=== PATIENT | female | born 1945 | race Caucasian/White ===

== ENCOUNTER → 2020-07-10 | Outpatient (CLI) | payer MEDICARE | LOC: LAB FS 10:20 | PROVIDERS: ATTEND Orthopaedic Surgery | DX: Z01.812 Encounter for preprocedural laboratory examination (principal); Z20.822 Contact with and (suspected) exposure to COVID-19 | CPT/HCPCS: 87635 ==

== ENCOUNTER 2020-09-14 21:03 | Emergency (ER) | payer MEDICARE ==
[~2020-09-14] VITALS: Ht 160 cm; Wt 77.1 kg
[2020-09-14 21:58] LABS: HEMATOCRIT 34 % (35-52); HEMOGLOBIN 11.3 G/DL (11.5-16.0); MEAN CORPUSCULAR HEMOGLOBIN 31 PG (25-34); MEAN CORPUSCULAR HGB CONC 34 G/DL (32-36); MEAN CORPUSCULAR VOLUME 91 FL (80-99); WHITE BLOOD COUNT 6.3 10^3/uL (4.3-11.0)
[2020-09-14 21:59] LABS: BASOPHILS % (AUTO) 1 % (0-10); EOSINOPHILS % (AUTO) 4 % (0-10); LYMPHOCYTES % (AUTO) 27 % (12-44); MEAN PLATELET VOLUME 10.1 FL (7.4-10.4); MONOCYTES % (AUTO) 9 % (0-12); NEUTROPHILS % (AUTO) 59 % (42-75); PLATELET COUNT 217 10^3/uL (130-400)
[2020-09-14 22:00] LABS: EOSINOPHILS # (AUTO) 0.3 10^3/uL (0.0-0.3); LYMPHOCYTES # (AUTO) 1.7 X 10^3 (1.0-4.0); MONOCYTES # (AUTO) 0.6 X 10^3 (0.0-1.0); NEUTROPHILS # (AUTO) 3.8 X 10^3 (1.8-7.8)
[2020-09-14 22:19] LABS: CHLORIDE 95 MMOL/L (98-107); POTASSIUM 3.6 MMOL/L (3.6-5.0); SODIUM 134 MMOL/L (135-145)
[2020-09-14 22:20] LABS: ALANINE AMINOTRANSFERASE 26 U/L (0-55); ALBUMIN 4.3 GM/DL (3.2-4.5); ALKALINE PHOSPHATASE 95 U/L (40-136); BILIRUBIN,TOTAL 0.3 MG/DL (0.1-1.0); BUN/CREATININE RATIO 23; CALCIUM 9.6 MG/DL (8.5-10.1); CARBON DIOXIDE 27 MMOL/L (21-32); CREATININE SERUM 0.74 MG/DL (0.60-1.30); GFR ESTIMATED 76; GLUCOSE 130 MG/DL (70-105); TOTAL PROTEIN 6.7 GM/DL (6.4-8.2)
[2020-09-14] MEDS ORDERED: cloNIDine 0.1 MG (CATAPRES) TAB PO ONE (23:00)
[2020-09-14] MEDS ORDERED: HYDR25TA4 PO (23:04)
--- NOTE | 2020-09-14 23:04 | ED Cardiac General ---
History of Present Illness General Chief Complaint: Cardiac/General Problems Stated Complaint: HIGH BP Nursing Triage Note: PT AMBULATE TO ROOM FS01 WITH C/O HYPERTENSION. PT REPORTS BP OF 200/87 AT HOME. PT REPORTS HX OF HYPERTENSION. Source: patient Exam Limitations: no limitations History of Present Illness Date Seen by Provider: Sep 14, 2020 Time Seen by Provider: 22:30 Initial Comments Patient is a 75-year-old female with history of hypertension who presents to the ED with asymptomatic hypertension here denies dizziness headache chest pain palpitation shortness of breath. Reports mild peripheral edema and right leg swelling for 3 weeks. No chest pain palpitations or shortness of breath.. No decreased urinary output. States blood pressure was 200/87 at home. She is compliant with her medication. No recent changes. No other symptoms or complaints. Severity: mild Location: other Prior CP/Workup: other Modifying Factors: improves with other Associated Systoms: Other Allergies and Home Medications Allergies Coded Allergies: Sulfa (Sulfonamide Antibiotics) (Verified Allergy, Unknown, 09/14/20) cortisone (Verified Allergy, Unknown, 09/14/20) Home Medications Hydrochlorothiazide 25 Mg Tablet, 25 MG PO DAILY Prescribed by: DAMIR SCHMITT on 09/14/20 0316 Patient Home Medication List Home Medication List Reviewed: Yes Review of Systems Review of Systems Constitutional: see HPI EENTM: See HPI Respiratory: See HPI Cardiovascular: See HPI Gastrointestinal: See HPI Genitourinary: See HPI Musculoskeletal: see HPI Skin: see HPI Psychiatric/Neurological: See HPI Endocrine: See HPI Hematologic/Lymphatic: See HPI All Other Systems Reviewed Negative Unless Noted: Yes Past Srqocij-Mwvoab-Ptylgs Hx Patient Social History Tobacco Use?: Yes Use of E-Cig and/or Vaping dev: No Use of E-Cig and/or Vaping Dixon: Never a User Substance use?: No Alcohol Use?: Yes Alcohol Frequency: Rarely Pt feels they are or have been: No Physical Exam Vital Signs Vital Signs - First Documented 09/14/20 09/14/20 21:35 23:16 Temp 36.6 Pulse 62 Resp 17 B/P (MAP) 206/78 (120) Pulse Ox 97 O2 Delivery Room Air Capillary Refill : Less Than 3 Seconds Height, Weight, BMI Height: '" Weight: lbs. oz. kg; 30.00 BMI Method: General Appearance: WD/WN, Anxious HEENT: PERRL/EOMI, Normal ENT Inspection, Pharynx Normal, Moist Mucous Membranes Neck: Full Range of Motion, Normal Inspection, Non Tender, Supple Respiratory: Chest Non Tender, Lungs Clear Cardiovascular: Regular Rate, Rhythm Gastrointestinal: Non Tender, Soft Neurologic/Psychiatric: Alert, Oriented x3, Normal Mood/Affect, blue split trimmer II-XII Norm as Tested Focused Exam Sepsis Stage: Ruled Out Progress/Results/Core Measures Results/Orders Lab Results Laboratory Tests Test 09/14/20 21:43 Range/Units White Blood Count 6.3 4.3-11.0 10^3/uL Red Blood Count 3.70 L 4.35-5.85 10^6/uL Hemoglobin 11.3 L 11.5-16.0 G/DL Hematocrit 34 L 35-52 % Mean Corpuscular Volume 91 80-99 FL Mean Corpuscular Hemoglobin 31 25-34 PG Mean Corpuscular Hemoglobin Concent 34 32-36 G/DL Red Cell Distribution Width 12.4 10.0-14.5 % Platelet Count 217 130-400 10^3/uL Mean Platelet Volume 10.1 7.4-10.4 FL Immature Granulocyte % (Auto) 0 % Neutrophils (%) (Auto) 59 42-75 % Lymphocytes (%) (Auto) 27 12-44 % Monocytes (%) (Auto) 9 0-12 % Eosinophils (%) (Auto) 4 0-10 % Basophils (%) (Auto) 1 0-10 % Neutrophils # (Auto) 3.8 1.8-7.8 X 10^3 Lymphocytes # (Auto) 1.7 1.0-4.0 X 10^3 Monocytes # (Auto) 0.6 0.0-1.0 X 10^3 Eosinophils # (Auto) 0.3 0.0-0.3 10^3/uL Basophils # (Auto) 0.0 0.0-0.1 10^3/uL Immature Granulocyte # (Auto) 0.0 0.0-0.1 10^3/uL Sodium Level 134 L 135-145 MMOL/L Potassium Level 3.6 3.6-5.0 MMOL/L Chloride Level 95 L 98-107 MMOL/L Carbon Dioxide Level 27 21-32 MMOL/L Anion Gap 12 5-14 MMOL/L Blood Urea Nitrogen 17 7-18 MG/DL Creatinine 0.74 0.60-1.30 MG/DL Estimat Glomerular Filtration Rate 76 BUN/Creatinine Ratio 23 Glucose Level 130 H 70-105 MG/DL Calcium Level 9.6 8.5-10.1 MG/DL Corrected Calcium 9.4 8.5-10.1 MG/DL Total Bilirubin 0.3 0.1-1.0 MG/DL Aspartate Amino Transf (AST/SGOT) 23 5-34 U/L Alanine Aminotransferase (ALT/SGPT) 26 0-55 U/L Alkaline Phosphatase 95 40-136 U/L Troponin I < 0.30 <0.30 NG/ML Pro-B-Type Natriuretic Peptide 370.3 H <75.0 PG/ML Total Protein 6.7 6.4-8.2 GM/DL Albumin 4.3 3.2-4.5 GM/DL My Orders Orders - DAMIR SCHMITT DO Cbc With Automated Diff (09/14/20 21:51) Comprehensive Metabolic Panel (09/14/20 21:51) Troponin I Fs (09/14/20 21:51) Chest 1 View Ap/Pa Only (09/14/20 21:51) Ekg-Prn For Chest Pain Or Rhyt (09/14/20 21:51) Probnp Fs (09/14/20 22:11) Clonidine Tablet (Catapres Tablet) (09/14/20 23:00) Ekg Tracing (09/14/20 21:39) Vital Signs/I&O 09/14/20 09/14/20 21:35 23:16 Temp 36.6 Pulse 62 59 Resp 17 16 B/P (MAP) 206/78 (120) 177/81 Pulse Ox 97 O2 Delivery Room Air Room Air Blood Pressure Mean: 120 Departure Communication (Admissions) Patient's blood pressure improved. Will place on 3-day course of diuretic with instructions to follow-up with her PCP for reevaluation and consideration of outpatient DVT ultrasound of right leg. Ultrasound is not available at this facility and symptoms been ongoing for 3 weeks. No cellulitis. No chest pain palpitations.. Return precautions reviewed. Patient verbalizes understanding agreement discharge instructions prior to departure. Impression Primary Impression: Accelerated hypertension Additional Impressions: Peripheral edema Right leg swelling Disposition: HOME, SELF-CARE Condition: Stable Departure-Patient Inst. Decision time for Depature: 23:02 Referrals: SHANNON RAMÍREZ APRN (PCP/Family) Primary Care Physician Patient Instructions: Swelling, High Blood Pressure ED Add. Discharge Instructions: Please continue home blood pressure medication and take additional dose of hydr ochlorothiazide daily for the next 3 days. Contact your PCP tomorrow to arrange for outpatient ultrasound of right leg to evaluate for possible DVT. Follow-up with your PCP on Friday or Friday for reevaluation of blood pressure return to the ED if new or worsening symptoms All discharge instructions reviewed with patient and/or family. Voiced understanding. Scripts Hydrochlorothiazide (Hydrochlorothiazide) 25 Mg Tablet 25 MG PO DAILY, #3 TAB Prov: DAMIR SCHMITT DO 09/14/20 DAMIR SCHMITT DO Sep 14, 2020 23:04
[2020-09-14 23:16] VITALS: BP 177/81
--- NOTE | 2020-09-15 05:37 | Diagnostic Imaging Report ---
INDICATION: Hypertension Portable chest 9:44 PM Heart size and pulmonary vascularity are normal. Lungs are clear. There are no effusions or pneumothoraces. IMPRESSION: Negative chest Dictated by: Dictated on workstation # [id number]
== END 2020-09-14 23:16 | disposition home or self-care (01) ==
LOC: EDUNIT# 21:03 → ER FS 21:04
DX: I10 Essential (primary) hypertension (principal); R60.9 Edema, unspecified; M79.89 Other specified soft tissue disorders
CPT/HCPCS: 36415; 71045; 80053; 83880; 84484; 85025; 93005

== ENCOUNTER → 2020-10-06 | Outpatient (CLI) | payer MEDICARE ==
[~2020-10-06] MED LIST: HYDR25TA4 PO
--- NOTE | 2020-10-06 17:01 | Diagnostic Imaging Report ---
PROCEDURE: CT head without contrast. TECHNIQUE: Multiple contiguous axial images were obtained through the brain without the use of intravenous contrast. Auto Exposure Controls were utilized during the CT exam to meet ALARA standards for radiation dose reduction. INDICATION: Dizziness and headaches. COMPARISON: No prior studies are available for comparison. FINDINGS: Ventricles and sulci are appropriate for the patient's age. No sulcal effacement or midline shift is identified. No acute intra-axial or extra-axial hemorrhage is detected. Cisterns are patent. Visualized paranasal sinuses are clear apart from opacification of a right-sided posterior ethmoid air cell. IMPRESSION: No acute intracranial process is detected. Dictated by: Dictated on workstation # [id number]
--- NOTE | 2020-10-06 17:01 | Diagnostic Imaging Report ---
PROCEDURE: CT sinuses without contrast TECHNIQUE: Multiple contiguous axial images were obtained through the sinuses without the use of intravenous contrast. Coronal and sagittal reformations were then performed. Auto Exposure Controls were utilized during the CT exam to meet ALARA standards for radiation dose reduction. INDICATION: Dizziness and headache. FINDINGS: The frontal sinus is clear. The ethmoid air cells appear clear apart from opacification of a posterior right ethmoid air cell. The sphenoid sinus is clear. The bilateral maxillary sinuses are clear. No air-fluid levels are seen. The mastoids are well aerated. The nasal septum is midline. The ostiomeatal complexes are patent bilaterally. IMPRESSION: Opacified right posterior ethmoid air cell. The study is otherwise unremarkable. Dictated by: Dictated on workstation # [id number]
== END ==
LOC: RAD FS 14:08
PROVIDERS: ATTEND Nurse Practitioner Family
DX: R42 Dizziness and giddiness (principal); R26.89 Other abnormalities of gait and mobility; R51.9 Headache, unspecified
CPT/HCPCS: 70450; 70486

== ENCOUNTER → 2021-04-16 | Outpatient (CLI) | payer MEDICARE ==
--- NOTE | 2021-04-16 16:54 | Diagnostic Imaging Report ---
INDICATION: Hip pain. COMPARISON: None available. TECHNIQUE: Two radiographs of the left hip dated April 16, 2021. FINDINGS: No acute fracture or dislocation. No destructive osseous process. Mild degenerative changes of the left hip are identified with mild joint space narrowing and mild osteophyte formation. No abnormal collapse of the left femoral head. No suspicious radiopaque foreign body. IMPRESSION: No acute osseous abnormality with mild degenerative changes associated with the left hip. Dictated by: Dictated on workstation # [id number]
== END ==
LOC: RAD FS 14:42
PROVIDERS: ATTEND Nurse Practitioner Family
DX: M16.12 Unilateral primary osteoarthritis, left hip (principal)
CPT/HCPCS: 73502

== ENCOUNTER 2022-02-25 17:18 | Emergency (ER) | payer MEDICARE ==
[~2022-02-25] VITALS: Ht 160 cm; Wt 77.1 kg
[2022-02-25 17:45] LABS: BASOPHILS % (AUTO) 0 % (0-10); EOSINOPHILS # (AUTO) 0.2 10^3/uL (0.0-0.3); EOSINOPHILS % (AUTO) 3 % (0-10); HEMATOCRIT 36 % (35-52); HEMOGLOBIN 12.2 g/dL (11.5-16.0); LYMPHOCYTES # (AUTO) 2.1 10^3/uL (1.0-4.0); LYMPHOCYTES % (AUTO) 32 % (12-44); MEAN CORPUSCULAR HEMOGLOBIN 30 pg (25-34); MEAN CORPUSCULAR HGB CONC 34 g/dL (32-36); MEAN CORPUSCULAR VOLUME 88 fL (80-99); MEAN PLATELET VOLUME 9.9 fL (9.0-12.2); MONOCYTES # (AUTO) 0.5 10^3/uL (0.0-1.0); MONOCYTES % (AUTO) 7 % (0-12); NEUTROPHILS # (AUTO) 3.8 10^3/uL (1.8-7.8); NEUTROPHILS % (AUTO) 58 % (42-75); PLATELET COUNT 225 10^3/uL (130-400); WHITE BLOOD COUNT 6.7 10^3/uL (4.3-11.0)
--- NOTE | 2022-02-25 18:09 | Diagnostic Imaging Report ---
INDICATION: Chest pain COMPARISON: September 14, 2020 TECHNIQUE: Single radiograph of the chest dated 02/25/2022. FINDINGS: The cardiac silhouette is mildly enlarged. No significant pulmonary vascular congestion. Interval development of left greater than right interstitial opacities throughout, greatest within the left mid and lower lung. No pleural effusion. No pneumothorax. No acute osseous abnormality. IMPRESSION: New left greater than right mild diffuse interstitial infiltrates. Findings may relate to an underlying infectious etiology, including atypical infection. Interstitial edema felt less likely given distribution and lack of significant central pulmonary vascular congestion. Mild cardiomegaly. Dictated by: Dictated on workstation # [id number]
[2022-02-25 18:13] LABS: ALANINE AMINOTRANSFERASE 19 U/L (0-55); ALKALINE PHOSPHATASE 100 U/L (40-136); BILIRUBIN,TOTAL 0.3 MG/DL (0.1-1.0); BUN/CREATININE RATIO 26; CALCIUM 9.2 MG/DL (8.5-10.1); CARBON DIOXIDE 27 MMOL/L (21-32); CHLORIDE 98 MMOL/L (98-107); CREATININE SERUM 0.53 MG/DL (0.60-1.30); GFR ESTIMATED 95; GLUCOSE 119 MG/DL (70-105); POTASSIUM 3.8 MMOL/L (3.6-5.0); SODIUM 135 MMOL/L (135-145)
[2022-02-25 18:14] LABS: ALBUMIN 4.3 GM/DL (3.2-4.5); TOTAL PROTEIN 6.6 GM/DL (6.4-8.2)
--- NOTE | 2022-02-25 18:17 | ED Cardiac General ---
History of Present Illness General Chief Complaint: Cardiac/General Problems Stated Complaint: HIGH BP Nursing Triage Note: PT TO ROOM FS01 VIA [facility] WITH C/O HYPERTENSION. PT STATES HER PROVIDER INSTRUCTED HER TO STOP TAKING LISENOPRIL AND THAT SHE COULD START TAKING BEET ROOT FOR HER HYPERTENSION. Source: patient Exam Limitations: no limitations History of Present Illness Date Seen by Provider: Feb 25, 2022 Time Seen by Provider: 17:00 Initial Comments Patient is a 76-year-old female with history of hypertension and depression who presents with cute onset dizziness with feeling of lightheadedness and near syncope prior to ED arrival. Patient was able to sit down and felt unwell with tingling in her hands and feet. She denies headache, weakness loss of sensation, blurred vision or unilateral deficits suggestive of stroke. She denies chest pain palpitations or shortness of breath. Symptoms gradually improved, although blood pressures remained elevated. Patient states her systolic blood pressure typically runs in the 140-160 range with a diastolic in the mid 90s. ED blood pressure in the ED is 190s over 110s. EKG is sinus rhythm with rate of 81. Patient has nonspecific ST-T wave changes with criteria for LVH. Patient is not currently taking any blood pressure medications due to poor tolerance of side effects, but is taking beet root at the advice of her PCP. No history of coronary disease. Patient states she has had 2 negative heart caths in the past 5 years Timing/Duration: 1 hour Severity: mild Location: other Activities at Onset: other Prior CP/Workup: other Modifying Factors: improves with other Associated Systoms: Other Allergies and Home Medications Allergies Coded Allergies: Sulfa (Sulfonamide Antibiotics) (Verified Allergy, Unknown, 09/14/20) cortisone (Verified Allergy, Unknown, 09/14/20) Patient Home Medication List Home Medication List Reviewed: Yes Hydrochlorothiazide (Hydrochlorothiazide) 25 Mg Tablet, 25 MG PO DAILY Prescribed by: DAMIR SCHMITT on 09/14/20 4767 Review of Systems Review of Systems Constitutional: see HPI EENTM: See HPI Respiratory: See HPI Cardiovascular: See HPI Gastrointestinal: See HPI Genitourinary: See HPI Musculoskeletal: see HPI Skin: see HPI Psychiatric/Neurological: See HPI Endocrine: See HPI Hematologic/Lymphatic: See HPI All Other Systems Reviewed Negative Unless Noted: No Past Czhrdvd-Cxgtpv-Ybslmm Hx Patient Social History Tobacco Use?: No Smokeless Tobacco Frequency: Never a User Use of E-Cig and/or Vaping Dixon: Never a User Substance use?: No Alcohol Use?: No Pt feels they are or have been: No Physical Exam Vital Signs Vital Signs - First Documented 02/25/22 17:19 Temp 36.4 Pulse 82 Resp 17 B/P (MAP) 207/86 (126) O2 Delivery Room Air Capillary Refill : Less Than 3 Seconds Height, Weight, BMI Height: '" Weight: lbs. oz. kg; 30.00 BMI Method: General Appearance: No Apparent Distress, WD/WN Neck: Full Range of Motion Respiratory: Normal Breath Sounds Cardiovascular: Regular Rate, Rhythm Neurologic/Psychiatric: Alert, Oriented x3 Focused Exam Sepsis Stage: Ruled Out Progress/Results/Core Measures Results/Orders Lab Results Laboratory Tests Test 02/25/22 17:27 Range/Units White Blood Count 6.7 4.3-11.0 10^3/uL Red Blood Count 4.03 3.80-5.11 10^6/uL Hemoglobin 12.2 11.5-16.0 g/dL Hematocrit 36 35-52 % Mean Corpuscular Volume 88 80-99 fL Mean Corpuscular Hemoglobin 30 25-34 pg Mean Corpuscular Hemoglobin Concent 34 32-36 g/dL Red Cell Distribution Width 12.7 10.0-14.5 % Platelet Count 225 130-400 10^3/uL Mean Platelet Volume 9.9 9.0-12.2 fL Immature Granulocyte % (Auto) 1 % Neutrophils (%) (Auto) 58 42-75 % Lymphocytes (%) (Auto) 32 12-44 % Monocytes (%) (Auto) 7 0-12 % Eosinophils (%) (Auto) 3 0-10 % Basophils (%) (Auto) 0 0-10 % Neutrophils # (Auto) 3.8 1.8-7.8 10^3/uL Lymphocytes # (Auto) 2.1 1.0-4.0 10^3/uL Monocytes # (Auto) 0.5 0.0-1.0 10^3/uL Eosinophils # (Auto) 0.2 0.0-0.3 10^3/uL Basophils # (Auto) 0.0 0.0-0.1 10^3/uL Immature Granulocyte # (Auto) 0.0 0.0-0.1 10^3/uL Sodium Level 135 135-145 MMOL/L Potassium Level 3.8 3.6-5.0 MMOL/L Chloride Level 98 98-107 MMOL/L Carbon Dioxide Level 27 21-32 MMOL/L Anion Gap 10 5-14 MMOL/L Blood Urea Nitrogen 14 7-18 MG/DL Creatinine 0.53 L 0.60-1.30 MG/DL Estimat Glomerular Filtration Rate 95 BUN/Creatinine Ratio 26 Glucose Level 119 H 70-105 MG/DL Calcium Level 9.2 8.5-10.1 MG/DL Corrected Calcium 9.0 8.5-10.1 MG/DL Total Bilirubin 0.3 0.1-1.0 MG/DL Aspartate Amino Transf (AST/SGOT) 19 5-34 U/L Alanine Aminotransferase (ALT/SGPT) 19 0-55 U/L Alkaline Phosphatase 100 40-136 U/L Troponin I < 0.30 <0.30 NG/ML Pro-B-Type Natriuretic Peptide 262.0 <450.0 PG/ML Total Protein 6.6 6.4-8.2 GM/DL Albumin 4.3 3.2-4.5 GM/DL My Orders Orders - DAMIR SCHMITT DO Cbc With Automated Diff (02/25/22 17:39) Comprehensive Metabolic Panel (02/25/22 17:39) Chest 1 View Ap/Pa Only (02/25/22 17:39) Ekg Tracing (02/25/22 17:39) Probnp Fs (02/25/22 17:39) Troponin I Fs (02/25/22 17:39) Vital Signs/I&O 02/25/22 02/25/22 17:19 18:29 Temp 36.4 36.4 Pulse 82 82 Resp 17 17 B/P (MAP) 207/86 (126) 207/86 O2 Delivery Room Air Room Air Blood Pressure Mean: 126 Departure Communication (Admissions) EKG: Sinus rhythm, rate 81, normal FL, QRS intervals, moderate voltage criteria for LVH, nonspecific ST-T wave changes. Patient's blood pressures to the 200s/110s in the emergency department which is the likely explanation of the patient's symptoms. Patient has poor tolerance to beta-blockers and has extensively trialed multiple other antihypertensives which over the past 5 years, which she has discontinued due to poor tolerance of side effects. She declines treatment of blood pressure in the emergency department or be discharged home with a prescription. I did offer to treat the patient's blood pressure and discharged with a prescription. The patient understands the risks of untreated blood pressure which includes but is not limited to stroke, heart disease, kidney disease. She understands that home remedies are helpful, but she may require additional antihypertensives in the interim. She has declined therapy in the emergency department and request discharge from the emergency department. Patient will be discharged home from the ER AGAINST MEDICAL ADVICE per her request, but plans to follow-up with her PCP tomorrow for further management. She is instructed to return to the emergency department should she change her mind regarding treatment. Review of initial lab work is otherwise unremarkable. Impression Primary Impression: Accelerated hypertension Additional Impressions: Dizziness Encounter for medical screening examination Disposition: HOME, SELF-CARE Condition: Against Medical Advice Departure-Patient Inst. Decision time for Depature: 18:25 Referrals: ROLAN ESTRADA APRN (PCP/Family) Primary Care Physician Patient Instructions: High Blood Pressure Emergencies Add. Discharge Instructions: You were evaluated in the emergency department for dizziness with neurologic changes in your hands and feet. This is likely caused due to elevation your blo od pressure which puts you at high risk of stroke. EKG and basic labs were obtained and initial results are nondiagnostic. It is important that you follow-up with your PCP tomorrow morning for further management as we have declined treatment of your blood pressure in the emergency department. In the meantime, should you change your mind regarding treatment or have recurrence of symptoms, return to the emergency department. All discharge instructions reviewed with patient and/or family. Voiced understanding. DAMIR SCHMITT DO Feb 25, 2022 18:17
[2022-02-25 18:29] VITALS: BP 207/86
== END 2022-02-25 18:29 | disposition left against medical advice (07) ==
LOC: EDUNIT# 17:18 → ER FS 17:19
DX: I10 Essential (primary) hypertension (principal); Z00.01 Encounter for general adult medical examination with abnormal findings; Z28.310 Unvaccinated for COVID-19
CPT/HCPCS: 36415; 71045; 80053; 83880; 84484; 85025; 93005